=== PATIENT | male | born 1965 ===

== ENCOUNTER 2018-02-05 07:53 | Emergency (ER) | payer MEDICAID ==
[2018-02-05] MEDS ORDERED: Sodium Chloride 0.9% 1,000 ML IV ONE (08:34)
[2018-02-05] MEDS ORDERED: Sodium Chloride 0.9% 1,000 ML ONE (08:50)
--- NOTE | 2018-02-05 08:54 | C.PDOC ---
History Of Present Illness 52-year-old male presents to the ED requesting med refill for his metformin, plavix, and neuropathy medication. Patient complains of coughing, feeling tired, and reports generalized bodyaches. On arrival to the ED, temp is 101.8. He also complains of pain to his feet, consistent with prior episodes of his neuropathy. 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 Otherwise he denies any SOB, chest pain, nausea, vomiting, abdominal pain, palpitations, or other complaint. Time Seen by Provider: 02/05/18 08:29 Chief Complaint (Nursing): Medical Clearance History Per: Patient History/Exam Limitations: no limitations Onset/Duration Of Symptoms: Days Current Symptoms Are (Timing): Still Present Past Medical History Reviewed: Historical Data, Nursing Documentation, Vital Signs Vital Signs: Last Vital Signs Temp 101.8 F H 02/05/18 07:57 Pulse 114 H 02/05/18 07:57 Resp 16 02/05/18 07:57 BP 129/74 02/05/18 07:57 Pulse Ox 95 02/05/18 07:57 - Medical History PMH: Diabetes, Hyperlipidemia Other PMH: Neuropathy Family History: States: No Known Family Hx - Social History Hx Alcohol Use: Yes Hx Substance Use: No - Immunization History Hx Tetanus Toxoid Vaccination: No Hx Influenza Vaccination: No Hx Pneumococcal Vaccination: No Review Of Systems Constitutional: Positive for: Fever, Other (Bodyaches) Cardiovascular: Negative for: Chest Pain, Palpitations Respiratory: Positive for: Cough. Negative for: Shortness of Breath Gastrointestinal: Negative for: Nausea, Vomiting Musculoskeletal: Positive for: Foot Pain Neurological: Negative for: Weakness, Numbness Physical Exam - Physical Exam Appears: Non-toxic, No Acute Distress Skin: Warm, Dry Head: Atraumatic, Normacephalic Eye(s): bilateral: Normal Inspection Ear(s): Bilateral: Normal (no erythema) Nose: Normal, No Discharge Oral Mucosa: Moist Neck: Normal ROM Chest: Symmetrical Cardiovascular: Rhythm Regular, No Murmur Respiratory: Normal Breath Sounds, No Rales, No Rhonchi, No Wheezing Gastrointestinal/Abdominal: Soft, No Tenderness, No Distention Extremity: Bilateral: Atraumatic, Normal Color And Temperature Neurological/Psych: Oriented x3, Normal Speech ED Course And Treatment - Laboratory Results Result Diagrams: 02/05/18 09:05 02/05/18 09:05 O2 Sat by Pulse Oximetry: 95 (RA) Pulse Ox Interpretation: Normal - Other Rad CXR X-Ray: Read By Radiologist Interpretation: Accession No. : [id number]. Patient Name / ID : NATALIA JEFFERSON / [id number]. Exam Date : 02/05/2018 08:39:15 ( Approved ). Study Comment : Sex / Age : M / 52Y. Creator : Estela Ruby MD. Dictator : Estela Ruby MD. Club Lounge Attendant : Food Processing Plant Manager : Estela Ruby MD. Approver2 : Report Date : 02/05/2018 09:13:55. My Comment : . Date of service: 02/05/2018. HISTORY: Shortness of breath. COMPARISON: No prior. TECHNIQUE: Chest PA and lateral. FINDINGS: LINES AND TUBES: None. LUNG AND PLEURA: The lungs are well inflated. There is subsegmental atelectasis in the lower lobes. No focal consolidation. No pleural effusion or pneumothorax. HEART AND MEDIASTINUM: The heart is not enlarged. No aortic atherosclerotic calcification present. The hilar and mediastinal contours are within normal limits. SKELETAL STRUCTURES: The bony structures are within normal limits for the patient's age. VISUALIZED UPPER ABDOMEN: Normal. OTHER FINDINGS: None. IMPRESSION: No active pulmonary disease. Medical Decision Making Medical Decision Making: Impression: 52-year-old diabetic male requesting med refill, febrile on arrival, complaints of cough and body aches Plan: --CMP --CBC --UA --Flu swab --Chest x-ray --1 L IV fluids --Metformin 500 mg PO Progress: All labs and CXR reviewed. UA unremarkable. Case discussed with Dr Monson. He re commended [facility] for URI treatment. Patient re-evaluated and is in no distress. His fever reduced and reports feeling better. I explained results and plan for discharge with antibiotic and refill of his DM medication. Recommend he follow up in the clinic. Disposition Counseled Patient/Family Regarding: Diagnosis, Need For Followup, Rx Given - Disposition Referrals: Simon Talamantes Karlos [Outside] Disposition: HOME/ ROUTINE Disposition Time: 10:15 Condition: GOOD Additional Instructions: Silke los medicamentos segn lo prescrito. seguimiento con la clnica Prescriptions: Azithromycin [Zithromax] 250 mg PO DAILY #6 tab Clopidogrel [Plavix] 75 mg PO DAILY #30 tab Gabapentin 300 mg PO DAILY #30 capsule metFORMIN [glucOPHAGE] 500 mg PO BID #60 tab Instructions: Bacterial Upper Respiratory Infection, Adult (DC) Forms: [email or web address] (Slovak), Work Excuse Print Language: PORTUGUESE - POA Present On Arrival: None - Clinical Impression Clinical Impression: Upper respiratory infection, Fever - PA / CAMPGROUND MANAGER / Resident Statement MD/DO has reviewed & agrees with the documentation as recorded. - Scribe Statement The provider has reviewed the documentation as recorded by the Nickolasibjose Low All medical record entries made by the Nickolasibjose were at my direction and person ally dictated by me. I have reviewed the chart and agree that the record accurately reflects my personal performance of the history, physical exam, medical decision making, and the department course for this patient. I have also personally directed, reviewed, and agree with the discharge instructions and disposition.
[2018-02-05 09:09] LABS: BASO # 0.1 K/uL (0.0-0.2); BASO % 0.4 % (0.0-2.0); EOS % 0.1 % (0.0-4.0); HEMOGLOBIN 12.1 g/dL (12.0-18.0); LYMPH % 6.1 % (20.0-40.0); MEAN CELL VOLUME 87.4 fL (80.0-94.0); MEAN CORPUSCULAR HEMOGLOBIN 28.1 pg (27.0-31.0); MEAN CORPUSCULAR HGB CONC 32.1 g/dL (33.0-37.0); MEAN PLATELET VOLUME 7.8 fL (7.2-11.7); MONO # 0.9 K/uL (0.0-0.8); MONO % 5.7 % (0.0-10.0); NEUT # 14.5 K/uL (1.8-7.0); NEUT % 87.7 % (50.0-75.0); PLATELET COUNT 319 K/uL (130-400); RBC 4.31 Mil/uL (4.40-5.90); RED CELL DISTRIBUTION WIDTH 14.5 % (11.5-14.5); WHITE BLOOD COUNT 16.5 K/uL (4.8-10.8)
--- NOTE | 2018-02-05 09:17 | RAD ---
Date of service: 02/05/2018 HISTORY: Shortness of breath COMPARISON: No prior. TECHNIQUE: Chest PA and lateral FINDINGS: LINES AND TUBES: None. LUNG AND PLEURA: The lungs are well inflated. There is subsegmental atelectasis in the lower lobes. No focal consolidation. No pleural effusion or pneumothorax. HEART AND MEDIASTINUM: The heart is not enlarged. No aortic atherosclerotic calcification present. The hilar and mediastinal contours are within normal limits. SKELETAL STRUCTURES: The bony structures are within normal limits for the patient's age. VISUALIZED UPPER ABDOMEN: Normal. OTHER FINDINGS: None. IMPRESSION: No active pulmonary disease.
[2018-02-05 09:20] LABS: ALB/GLOB RATIO 1.3 (1.0-2.1); ALBUMIN 4.3 g/dL (3.5-5.0); ALT/SGPT 149 U/L (21-72); AST/SGOT 345 U/L (17-59); BLOOD UREA NITROGEN 26 mg/dL (9-20); CALCIUM 8.6 mg/dl (8.6-10.4); GFR NON-AFRICAN AMERICAN > 60
[2018-02-05 09:35] LABS: EOSINOPHIL 1 % (0-4); LYMPHOCYTE 2 % (20-40); MONOCYTE 1 % (0-10); NEUTROPHIL 96 % (50-75); PLATELET ESTIMATE NORMAL (NORMAL); TOTAL CELLS COUNTED 100
[2018-02-05 10:10] LABS: SQUAMOUS EPITHIAL 1 /hpf (0-5); URINE BILIRUBIN NEGATIVE (NEGATIVE); URINE BLOOD 1+ (NEGATIVE); URINE CLARITY Clear (Clear); URINE COLOR Yellow (YELLOW); URINE GLUCOSE (UA) NORMAL (Normal); URINE LEUKOCYTE ESTERASE NEG Leu/uL (Negative); URINE PROTEIN NEGATIVE (NEGATIVE); URINE UROBILINOGEN NORMAL mg/dL (0.2-1.0)
[2018-02-05 10:39] VITALS: BP 106/66; PULSE 92; RESP 20; TEMP 99.9
[2018-02-05 10:56] VITALS: O2SAT 95
== END 2018-02-05 10:43 | disposition home or self-care (01) ==
LOC: C.ER 07:53
DX: J06.9 Acute upper respiratory infection, unspecified (principal); R50.9 Fever, unspecified
CPT/HCPCS: 71046; 80053; 81001; 82948; 85025; 87804; 96360; 99284; J7030